=== PATIENT | female | born 1980 | race Caucasian/White ===

== ENCOUNTER 2017-09-10 17:31 | Emergency (ER) | payer OTHER ==
[~2017-09-10] VITALS: Ht 175.3 cm; Wt 90.6 kg
[~2017-09-10 17:31] MED LIST: IBUPROFEN800 MG PO; SAPHRIS10 MG SL; TORADOL10 MG PO; VICODIN 5-3001 EACH PO; VISTARIL50 MG PO
[2017-09-10] MEDS ORDERED: INDOCIN50 MG PO (19:07)
[2017-09-10 19:17] VITALS: BP 126/64
== END 2017-09-10 19:19 | disposition home or self-care (01) ==
LOC: EME 17:31
DX: G56.03 Carpal tunnel syndrome, bilateral upper limbs (principal); F17.200 Nicotine dependence, unspecified, uncomplicated; F32.9 Major depressive disorder, single episode, unspecified; Z88.0 Allergy status to penicillin; Z88.5 Allergy status to narcotic agent; Z88.1 Allergy status to other antibiotic agents
CPT/HCPCS: 99281; 99283

== ENCOUNTER 2017-10-31 18:07 | Emergency (ER) | payer OTHER ==
[~2017-10-31] VITALS: Ht 175.3 cm; Wt 90.4 kg
[~2017-10-31 18:07] MED LIST changes: +INDOCIN50 MG PO
[2017-10-31 18:18] VITALS: BP 125/77
[2017-10-31 18:45] LABS: HEMOGLOBIN 9.8 G/DL (11.9-15.5); MCH 22.1 PG (29.0-34.0); MCHC 31.6 G/DL (30.0-36.0); MCV 69.8 FL (83-99); PLATELET COUNT 512 K/uL (156-360); RBC DIS.WIDTH-CV 18.2 % (11.8-14.6); RBC DIS.WIDTH-SD 44.8 % (39-53); RED BLOOD COUNT 4.44 M/uL (3.80-5.20); WHITE BLOOD COUNT 12.6 K/uL (4.1-10.2)
[2017-10-31 18:50] LABS: CHLORIDE 108 mEq/L (99-109); POTASSIUM 3.6 mEq/L (3.7-5.4); SODIUM 141 mEq/L (136-147)
[2017-10-31 18:53] LABS: GLUCOSE 115 mg/dL (70-99); TOTAL PROTEIN 7.3 g/dL (6.4-8.3)
[2017-10-31 18:55] LABS: TOTAL BILIRUBIN 0.4 mg/dL (0.0-1.0)
[2017-10-31 18:56] LABS: ALKALINE PHOSPHATASE 92 IU/L (3-129); CREATININE 0.8 mg/dL (0.6-1.3); GFR ESTIMATE (CALCULATED) > 59 mL/min/
[2017-10-31 18:57] LABS: UREA NITROGEN (BUN) 13 mg/dL (9-23)
[2017-10-31 18:58] LABS: AST (GOT) 43 IU/L (2-34)
[2017-10-31 18:59] LABS: ALT (GPT) 49 IU/L (3-49)
[2017-10-31 19:06] LABS: QUANTITATIVE HCG < 4.0 MIU/ML
[2017-10-31 21:08] LABS: LIPASE 26 U/L (1.0-51.0)
== END 2017-10-31 20:35 | disposition left against medical advice (07) ==
LOC: EME 18:07
DX: R10.31 Right lower quadrant pain (principal); R10.32 Left lower quadrant pain; K59.00 Constipation, unspecified; R82.99 Other abnormal findings in urine; R11.0 Nausea; F17.200 Nicotine dependence, unspecified, uncomplicated; Z53.20 Procedure and treatment not carried out because of patient's decision for unspecified reasons
CPT/HCPCS: 80053; 81003; 83690; 84702; 85027